=== PATIENT | female | born 1960 | race Caucasian/White ===

== ENCOUNTER 2022-02-06 17:46 | Emergency (ER) | payer OTHER, SELFPAY ==
[2022-02-06 17:55] VITALS: BP 174/94; PULSE 105; RESP 18; TEMP 36.7; O2SAT 100
[2022-02-06 18:16] VITALS: BP 174/94; PULSE 81; RESP 18; TEMP 36.8; O2SAT 100
[2022-02-06] MEDS: cloNIDine HCL 0.1 MG TABLET PO (18:34)
--- NOTE | 2022-02-06 18:46 | ED.GENADULT ---
HPI - General Adult General Chief complaint: Unspecified Stated complaint: Blood pressure at stroke stage per [facility] Time Seen by Provider: 02/06/22 17:54 Source: patient Mode of arrival: ambulatory Limitations: no limitations History of Present Illness HPI narrative: this is a 61-year-old female that presents with some which she was told by her home health meal miller that her blood pressure was elevated, initially when she came in her blood pressure 174/94 currently is 159/89, patient is asymptomatic with no chest pain no shortness of breath no blurry vision no headaches no fever chills no peripheral edema. Onset (ago): hour(s) Related Data Home Medications Medication Instructions Recorded Confirmed Unable to Obtain Home Medications 02/06/22 02/06/22 Allergies Allergy/AdvReac Type Severity Reaction Status Date / Time isosorbide Allergy Hives Verified 02/06/22 18:33 Review of Systems Review of Systems: All systems reviewed & are unremarkable except as noted in HPI and below PMFSH Past Medical History Medical History HTN (hypertension) Exam Const: General: cooperative, healthy appearing, comfortable, no acute distress, well developed, alert, awake and Physically active HENMT: Head: normal to inspection Face/Nose/Sinus: Normal external nose present Face and sinus: normal facial exam Mouth: Yes Normal oral and palatal mucosa present Throat: posterior oropharynx normal Eyes: General: appearance normal, both eyes and all related structures Visual Hawkins: normal visual hawkins by confrontation Neck: Neck: normal visual inspection, full ROM, no lymphadenopathy and no meningeal signs Chest: Chest palpation & inspection: normal inspection of the chest and normal palpation of entire chest wall Resp: Effort & Inspection: normal respiratory effort Cardio: Jugular venous distension: no JVD Palpation: normal PMI Rate: regular rate Rhythm: regular rhythm GI: Inspection: normal to inspection Auscultation: normal bowel sounds Urinary Catheter: Urinary Catheter: patent and draining Back/Spine/Pelvis: Back: no CVA tenderness Skin: General skin exam: normal color and no rashes or lesions noted Neuro: General: oriented to person, oriented to place, oriented to time and patient oriented x3 Extrem: General: normal to inspection, full ROM and capillary refill normal Right lower extremity: normal to inspection Psych: Appearance: grossly normal and well kempt Mental Status: mental status grossly normal Course Course Emergency Course: 0.1 mg of clonidine was given and reassessment of patient blood pressure has improved. Vital Signs Vital signs: Vital Signs Temperature 36.8 C 02/06/22 18:16 Pulse Rate 81 02/06/22 18:16 Respiratory Rate 18 02/06/22 18:16 Blood Pressure 174/94 H 02/06/22 18:16 Pulse Oximetry 100 02/06/22 18:16 Oxygen Delivery Room Air 02/06/22 18:16 Temperature 36.8 C 02/06/22 18:16 Pulse Rate 81 02/06/22 18:16 Respiratory Rate 18 02/06/22 18:16 Blood Pressure 174/94 H 02/06/22 18:16 Pulse Oximetry 100 02/06/22 18:16 Oxygen Delivery Room Air 02/06/22 18:16 Medical Decision Making Vital Signs Vital Signs: Vital Signs Temperature 36.8 C 02/06/22 18:16 Pulse Rate 81 02/06/22 18:16 Respiratory Rate 18 02/06/22 18:16 Blood Pressure 174/94 H 02/06/22 18:16 Pulse Oximetry 100 02/06/22 18:16 Oxygen Delivery Room Air 02/06/22 18:16 Temperature 36.8 C 02/06/22 18:16 Pulse Rate 81 02/06/22 18:16 Respiratory Rate 18 02/06/22 18:16 Blood Pressure 174/94 H 02/06/22 18:16 Pulse Oximetry 100 02/06/22 18:16 Oxygen Delivery Room Air 02/06/22 18:16 Critical Care Time Critical Care Time Critical Care Time: No Discharge Plan Discharge Clinical Impression: HTN (hypertension) Qualifiers: Hypertension type: primary hypertension Qualified Cod
--- NOTE | 2022-02-06 19:00 | PC.NURSE ---
Care resumed, pt resting c noted BP elevated at this time p being given Clonidine. Pt reports no sxs upon assessment other than occasionally feeling dizzy when she gets up. Noted heart holter monitor in place per pts coding consultant. Orders received from [facility].
--- NOTE | 2022-02-06 19:30 | PC.NURSE ---
Pt assissted to BR to urinate, back to bed s difficulty.
[2022-02-06] MEDS: LABETALOL HCL INJ 100 MG/20 ML VIAL 10 MG IV PUSH (19:31)
[2022-02-06 19:46] VITALS: BP 146/74; PULSE 94; RESP 20; O2SAT 97
[2022-02-06 19:47] VITALS: BP 146/74; PULSE 94; RESP 19; O2SAT 99
[2022-02-06 20:01] VITALS: BP 140/74; PULSE 94; RESP 20; TEMP 36.8; O2SAT 99
== END 2022-02-06 20:08 | disposition home or self-care (01) ==
PROVIDERS: Emergency Provider Emergency Medicine
DX: I10 Essential (primary) hypertension (principal)
CPT/HCPCS: 96374; 99284; A9270